=== PATIENT | male | born 1955 | race Caucasian/White ===

== ENCOUNTER 2017-06-19 17:18 | Emergency (ER) | payer OTHER ==
[2017-06-19 17:24] VITALS: BP 127/85
[2017-06-19] MEDS ORDERED: Tetracaine 0.5% OPTH.SOL 4 ML* 1 DROP BTL BOTH EYES ONE (17:27)
[2017-06-19] MEDS ORDERED: Fluorescein Sodium TOPICAL* 1 MG TEST OPHTHALMIC ONE (17:28)
--- NOTE | 2017-06-19 17:57 | UC ---
Daniela Horton Thomas, scribed for Katherin Nolan MD on 06/19/17 at 1731 . Eye Complaint HPI - HPI Summary HPI Summary: The pt is a 62 y/o M presenting to [facility] c/o R eye irritation for the last three hours. He is a bernabe and he thinks that some dust may have become lodged in his eye approx 2pm today. He complains of a foreign body sensation in his right eye upper lid. He has rinsed his eye in cold water for five minutes. He reports clear drainage. + photophobia. The irritation is worsened with sunlight. He has a Hx of a torn retina in his right eye previous. He had cataract surgery as well, and he has an implanted lens in his right eye. 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 This blurred vision is unchanged from baseline. He rates his pain 6/10. He normally wears glasses. Pt denies ear pain, sinus pain. The patients PCP is Dr. Pulliam. Patients medication reviewed this visit. - History of Current Complaint Chief Complaint: UCEye Stated Complaint: EYE COMPLAINT Hx Obtained From: Patient Onset/Duration: Sudden Onset, Lasting Hours - onset two hours ago, Still Present Timing: Constant Severity Initially: Mild Severity Currently: Moderate Pain Intensity: 6 Pain Scale Used: 0-10 Numeric Location of Injury: Eye Lid (upper) Character: Foreign Body Sensation Aggravating Factor(s): Other - Sunlight Alleviating Factor(s): Nothing Associated Signs And Symptoms: Positive: Drainage (Clear), Vision Impairment Right - chronic blurred vision that is baseline Related History: Other - Hx of torn retina in his R eye - Allergies/Home Medications Allergies/Adverse Reactions: Allergies Allergy/AdvReac Type Severity Reaction Status Date / Time No Known Allergies Allergy Verified 06/19/17 17:24 Home Medications: Home Medications HYDROcodone/ACETAMIN 5-325 MG* [[place] 5-325 TAB*] 1 tab PO PRN 06/19/17 [History ] Multiple Vitamins W/ Minerals [Multivitamin Adults] 1 tab PO DAILY 06/19/17 [ History Confirmed 06/19/17] PMH/Surg Hx/FS Hx/Imm Hx Previously Healthy: No - Torn retina in right eye; leg fracture; cataracts - Surgical History Surgical History: Yes Surgery Procedure, Year, and Place: RIGHT EYE (TORN RETINA REPAIR), LEG SURGERY , SHOULDER SURGERY, TESTICULAR SURGERY, APPENDECTOMY - Family History Known Family History: Positive: Diabetes, Other - Cancer - Social History Alcohol Use: Occasionally Substance Use Type: Marijuana Smoking Status (MU): Current Every Day Smoker Type: Cigarettes Amount Used/How Often: 3 - PPD Review of Systems Constitutional: Other - NEG: fever Eyes: Drainage - clear, Other - Eye irritation x2 hours All Other Systems Reviewed And Are Negative: Yes Physical Exam Triage Information Reviewed: Yes Appearance: Well-Appearing, No Pain Distress, Well-Nourished Vital Signs: Initial Vital Signs Temp 98.7 F 06/19/17 17:19 Pulse 51 06/19/17 17:19 Resp 16 06/19/17 17:19 BP 127/85 06/19/17 17:19 Pulse Ox 95 06/19/17 17:19 Vital Signs Reviewed: Yes Eyes: Positive: Other: - ZOHRA, EOM intact and full + diffuse injection with clear discharge + fluorescene uptake at 11 o'clock iris no foreign body noted lids everted without foreign body ENT: Positive: Normal ENT inspection, Hearing grossly normal, Pharynx normal, TMs normal Dental Exam: Normal Neck exam: Normal Neck: Positive: Supple, Nontender, No Lymphadenopathy Respiratory: Positive: No respiratory distress Psychological Exam: Normal Eye Complaint Course/Dx - Course Course Of Treatment: The pt is a 62 y/o M presenting to [facility] c/o R eye irritation for the last three hours. He is a bernabe and he thinks that some dust may have become lodged in his eye. He complains of a foreign body sensation in his right eye upper lid. He has rinsed his eye in cold water for five minutes. He reports clear drainage. The irritation is worsened with sunlight. He has a Hx of a torn retina in his right eye. He had cataracts surgery as well, and he has an implanted lens in his right eye. Pt with corneal abraison on exam. no foreign body noted. strong recommendation for optho f.u - pt will go this doctor in [place] or specialist in [place]. polytrim. sunglasses. return precautions. Pt in agreement with plan - Differential Dx/Diagnosis Provider Diagnoses: corneal abrasion Discharge - Discharge Plan Condition: Stable Disposition: HOME Prescriptions: Polymyx/Trimethoprim OPTH* [Polytrim OPHTH*] 1 drop RIGHT EYE Q6HR #1 btl Patient Education Materials: Corneal Abrasion (ED) Referrals: Cornelio Pulliam MD [Primary Care Provider] - Additional Instructions: - Use antibiotic eye drops as prescribed - every 6 hours x 5 days - Okay to alternate ibuprofen (Advil, Motrin) and Tylenol every 3 hours for pain. Take with food. Do NOT take for more than 4-5 days - avoiding light - sunglasses, sun patches - will be helpful for sensitivity - contact your eye doctor to schedule a recheck in the next 1-2 days - this is important. -if you develop increased pain, drainage, or any other concerns - contact your doctor or return with any questions or concerns The documentation as recorded by the Daniela davila Thomas accurately reflects the service I personally performed and the decisions made by me, Katherin Nolan MD.
== END 2017-06-19 18:05 | disposition home or self-care (01) ==
LOC: UCEAST 17:18
DX: S05.01XA Injury of conjunctiva and corneal abrasion without foreign body, right eye, initial encounter (principal); X58.XXXA Exposure to other specified factors, initial encounter; Y92.9 Unspecified place or not applicable; Z86.69 Personal history of other diseases of the nervous system and sense organs
CPT/HCPCS: 99212; A9270-GY; G0463

== ENCOUNTER 2019-01-28 12:13 | Emergency (ER) | payer OTHER ==
[2019-01-28 12:31] VITALS: BP 138/83
[2019-01-28] MEDS ORDERED: Aspirin 81 mg CHEW TAB* 81 MG TAB.CHEW PO ONE (12:39)
--- NOTE | 2019-01-28 12:45 | UC ---
Cardiac HPI - HPI Summary HPI Summary: ONSET OF MIDSTERNAL/LEFT ANTERIOR CHEST PAIN 2 DAYS AGO WHILE WORKING. PATIENT WORKS IN CONSTRUCTION. HAS BEEN CONSTANT SINCE ONSET BUT WORSE TODAY. SYMPTOMS AGGRAVATED BY EXERTION. HE REPORTS SOME ASSOCIATED SHORTNESS OF BREATH AND RADIATION OF THE PAIN UP HIS NECK AND DOWN HIS ARM. PATIENT IS A SMOKER AND HAS A POSITIVE FAMILY HISTORY OF HEART DISEASE. - History of Current Complaint Chief Complaint: UCChestPain Stated Complaint: CHEST PAIN Time Seen by Provider: 01/28/19 12:26 Hx Obtained From: Patient Onset/Duration: Sudden Onset, Lasting Days, Still Present Timing: Constant Initial Severity: Moderate Current Severity: Moderate Pain Intensity: 3 Chest Pain Location: Mid Sternal, Left Anterior Character: Dull/Aching Aggravating Factor(s): Exertion Alleviating Factor(s): Nothing Associated Signs & Symptoms: Positive: Chest Pain, SOB - Allergy/Home Medications Allergies/Adverse Reactions: Allergies Allergy/AdvReac Type Severity Reaction Status Date / Time No Known Allergies Allergy Verified 01/28/19 12:25 PMH/Surg Hx/FS Hx/Imm Hx Previously Healthy: Yes - Surgical History Surgical History: Yes Surgery Procedure, Year, and Place: RIGHT EYE (TORN RETINA REPAIR), LEG SURGERY , RT SHOULDER SURGERY, TESTICULAR SURGERY, APPENDECTOMY.knee-l - Family History Known Family History: Positive: Cardiac Disease, Hypertension, Diabetes, Other - Cancer - Social History Alcohol Use: Occasionally Substance Use Type: Marijuana Substance Use Comment - Amount & Last Used: occ. Smoking Status (MU): Current Every Day Smoker Type: Cigarettes Amount Used/How Often: 3/4 - 1 PPD Review of Systems All Other Systems Reviewed And Are Negative: Yes Constitutional: Positive: Negative Respiratory: Positive: Shortness Of Breath Cardiovascular: Positive: Chest Pain Gastrointestinal: Positive: Negative Physical Exam Triage Information Reviewed: Yes Appearance: Well-Appearing, No Pain Distress, Well-Nourished Vital Signs: Initial Vital Signs Temp 98.7 F 01/28/19 12:27 Pulse 73 01/28/19 12:27 Resp 16 01/28/19 12:27 BP 138/83 01/28/19 12:27 Pulse Ox 95 01/28/19 12:27 Vital Signs Reviewed: Yes Eyes: Positive: Conjunctiva Clear ENT: Positive: Hearing grossly normal Neck: Positive: Supple Respiratory Exam: Normal Cardiovascular Exam: Normal Abdomen Description: Positive: Nontender, Soft Musculoskeletal: Positive: No Edema Neurological: Positive: Alert Psychological: Positive: Age Appropriate Behavior Skin: Negative: Rashes Diagnostics - EKG Cardiac Rate: NL - 69BPM Cardiac Rhythm: Sinus: Normal - LEFT AXIS DEVIATION Ectopy: None ST Segment: Normal - Assessment/Plan Course Of Treatment: PT OFFERED TRANSPORT TO THE ED BY AMBULANCE BUT DECLINES. ADVISED THAT BY NOT TRAVELING IN A MONITORED SETTING HE COULD BE RISKING WORSENING OF HIS CONDITION THAT COULD POSE A THREAT TO HIS LIFE, HEALTH AND MEDICAL SAFETY. HE VERBALIZES UNDERSTANDING AND CONTINUES TO DECLINE AMBULANCE TRANSFER. - Clinical Impression Provider Diagnosis: Chest pain Discharge - Sign-Out/Discharge Documenting (check all that apply): Patient Departure All imaging exams completed and their final reports reviewed: No Studies - Discharge Plan Condition: Stable Disposition: TRANS HIGHER LVL OF CARE FAC Patient Education Materials: Chest Pain (ED) Referrals: Cornelio Pulliam MD [Primary Care Provider] - If Needed Additional Instructions: GO DIRECTLY TO [facility] ED FROM HERE FOR FURTHER EVALUATION. YOU RECEIVED 81MG ASA X 4 HERE IN THE . YOU HAVE DECLINED TRANSFER TO THE ED BY AMBULANCE. BE ADVISED THAT BY NOT TRAVELING IN A MONITORED SETTING YOU COULD BE RISKING WORSENING OF YOUR CONDITION THAT COULD POSE A THREAT TO YOUR LIFE, HEALTH AND MEDICAL SAFETY. - Billing Disposition and Condition Condition: STABLE Disposition: Trans Higher Lvl of Care Fac
== END 2019-01-28 12:45 | disposition short-term general hospital (02) ==
LOC: UCEAST 12:13
DX: R07.89 Other chest pain (principal); R06.02 Shortness of breath; M54.2 Cervicalgia; M79.603 Pain in arm, unspecified; Z82.49 Family history of ischemic heart disease and other diseases of the circulatory system; Z83.3 Family history of diabetes mellitus; F17.210 Nicotine dependence, cigarettes, uncomplicated
CPT/HCPCS: 93005; 99212; A9270-GY; G0463

== ENCOUNTER 2019-01-28 13:05 | Emergency (ER) | payer OTHER ==
--- NOTE | 2019-01-28 14:08 | ED ---
HPI Chest Pain - HPI Summary HPI Summary: Pt is a 63 y/o M presenting to the ED with a chief complaint of chest pain onset about 3-4 days ago. The pain is on his L anterior chest but radiates to his L arm, neck, and back. It is described as an intermittent dull pain, and nothing really makes it worse. He reports associated SOB upon walking upstairs, dry mouth, mild cough, and some anxiety, mostly about his elevated BP. He denies nausea, fever, chills, diaphoresis, vomiting, abd pain, edema, as well as hx of ND, or recent travel or procedures. - History of Current Complaint Chief Complaint: EDChestPainROMI Time Seen by Provider: 01/28/19 13:42 Hx Obtained From: Patient Onset/Duration: Started Days Ago, Still Present Timing: Intermittent, Lasting Days Initial Severity: Moderate Current Severity: Mild Pain Intensity: 3 Pain Scale Used: 0-10 Numeric Chest Pain Location: Mid Sternal Chest Pain Radiates: Yes Chest Pain Radiates To:: Back, Arm, Neck Character: Dull/Aching Aggravating Factor(s): Nothing Alleviating Factor(s): Nothing Associated Signs and Symptoms: Positive: Anxiety, Shortness of Breath, Cough. Negative: Fever, Chills, Diaphoresis, Nausea, Abdominal Pain, Vomiting, Edema - Allergy/Home Medications Allergies/Adverse Reactions: Allergies Allergy/AdvReac Type Severity Reaction Status Date / Time No Known Allergies Allergy Verified 01/28/19 13:16 Home Medications: Home Medications Famotidine 1 tab PO DAILY 01/28/19 [History Confirmed 01/28/19] PMH/Surg Hx/FS Hx/Imm Hx Previously Healthy: Yes Endocrine/Hematology History: Denies: Hx Diabetes Cardiovascular History: Denies: Hx Hypercholesterolemia - Surgical History Surgery Procedure, Year, and Place: RIGHT EYE (TORN RETINA REPAIR), LEG SURGERY , RT SHOULDER SURGERY, TESTICULAR SURGERY, APPENDECTOMY.knee-l Infectious Disease History: No Infectious Disease History: Denies: Traveled Outside the [place] in Last 30 Days - Family History Known Family History: Positive: Cardiac Disease, Hypertension, Diabetes, Other - Cancer - Social History Alcohol Use: Occasionally Hx Substance Use: Yes Substance Use Type: Reports: Marijuana Substance Use Comment - Amount & Last Used: occ. Hx Tobacco Use: Yes Smoking Status (MU): Current Every Day Smoker Type: Cigarettes Amount Used/How Often: 3/4 - 1 PPD Review of Systems Positive: Other - dry mouth. Negative: Fever, Chills Positive: Chest Pain Positive: Shortness Of Breath, Cough Negative: Abdominal Pain, Vomiting, Nausea Negative: Edema Positive: Anxious All Other Systems Reviewed And Are Negative: Yes Physical Exam - Summary Physical Exam Summary: Constitutional: Well-developed, Well-nourished, Alert. (-) Distressed Skin: Warm, Dry HENT: Normocephalic; Atraumatic Eyes: Conjunctiva normal Neck: Musculoskeletal ROM normal neck. (-) JVD, (-) Stridor, (-) Tracheal deviation Cardio: Rhythm regular, rate normal, Heart sounds normal; Intact distal pulses; The pedal pulses are 2+ and symmetric. Radial pulses are 2+ and symmetric. (-) Murmur Pulmonary/Chest wall: Effort normal. (-) Respiratory distress, Rare wheeze, (-) Rales Abd: Soft, (-) tenderness, (-) Distension, (-) Guarding, (-) Rebound Musculoskeletal: (-) Edema Lymph: (-) Cervical adenopathy Neuro: Alert, Oriented x3 Psych: Mood and affect Normal Triage Information Reviewed: Yes Vital Signs On Initial Exam: Initial Vitals Temp Pulse Resp BP Pulse Ox 97.9 F 67 18 146/82 96 01/28/19 13:14 01/28/19 13:14 01/28/19 13:14 01/28/19 13:14 01/28/19 13:14 Vital Signs Reviewed: Yes Diagnostics - Vital Signs Vital Signs Temp Pulse Resp BP Pulse Ox 01/28/19 13:14 97.9 F 67 18 146/82 96 - Laboratory Result Diagrams: 01/28/19 14:06 01/28/19 14:06 Lab Statement: Any lab studies that have been ordered have been reviewed, and results considered in the medical decision making process. - Radiology CXR Radiology Interpretation Completed By: Radiologist Summary of Radiographic Findings: No active cardiopulmonary disease. ED physician has reviewed this report. - CT Chest/Thorax CTA CT Interpretation Completed By: Radiologist Summary of CT Findings: 1. No pulmonary emboli. No additional findings to correlate with patient's symptomatology. 2. Mild emphysema. ED physician has reviewed this report. - EKG 1318 Cardiac Rate: NL - 64bpm EKG Rhythm: Sinus Rhythm ST Segment: Normal Ectopy: None Summary of EKG Findings: EKG at 1318 shows NSR at 64bpm with nml QRS, nml ST segment, nml T-waves, and some L-axis deviation. Re-Evaluation - Re-Evaluation 1st re-eval Re-Evaluation Time: 20:01 Change: Unchanged Comment: Results of CTA discussed w/ patient. Chest Pain Course/Dx - Course Course Of Treatment: Pt is a 63 y/o M presenting to the ED with a chief complaint of intermittent chest pain described as a dull pain. He reports associated SOB upon walking upstairs, dry mouth, mild cough, and some anxiety, mostly about his elevated BP. He denies nausea, fever, chills, diaphoresis, vomiting, abd pain, edema, as well as hx of ND, or recent travel or procedures. CXR shows no active cardiopulmonary disease. Pt's lab results show a BUN/ Creatinine ratio of 26.1, lactic acid of 0.4, and initial troponin of 0.00. His second troponin is 0.00. EKG at 1318 shows NSR at 64bpm with nml QRS, nml ST segment, nml T-waves, and some L-axis deviation. Chest/Thorax CTA shows: 1. No pulmonary emboli. No additional findings to correlate with patient's symptomatology. 2. Mild emphysema. At 2000, I discussed the results with the patient. He will be sent home with dx including chest pain and bronchospasm. - Diagnoses Provider Diagnoses: Bronchospasm, Chest pain Discharge - Sign-Out/Discharge Documenting (check all that apply): Patient Departure Patient Received Moderate/Deep Sedation with Procedure: No - Discharge Plan Condition: Stable Disposition: HOME Prescriptions: Albuterol HFA INHALER* [Ventolin HFA Inhaler*] 1 puff INH Q4H PRN #1 mdi PRN Reason: Sob/Wheezing Patient Education Materials: Chest Pain (ED), Bronchospasm (ED) Print Language: UZBEK Referrals: Cornelio Pulliam MD [Primary Care Provider] - - Billing Disposition and Condition Condition: STABLE Disposition: Home - Attestation Statements Document Initiated by Scribe: Yes Documenting Scribe: Kady Cervantes Provider For Whom Scribe is Documenting (Include Credential): Clover Lim MD. Scribe Attestation: I, Kady Cervantes, scribed for Clover Maldonado MD. on 01/28/19 at 2240. Scribe Documentation Reviewed: Yes Provider Attestation: The documentation as recorded by the scribe, Kady Cervantes accurately reflects the service I personally performed and the decisions made by me, Clover Maldonado MD. Status of Scribe Document: Viewed
[2019-01-28 14:15] LABS: ABS Basophils 0 10^3/ul (0-0.2); ABS Eosinophils 0.3 10^3/ul (0-0.6); ABS Lymphocytes 2.7 10^3/ul (1.0-4.8); ABS Monocytes 0.7 10^3/ul (0-0.8); ABS Neutrophils 4.4 10^3/ul (1.5-7.7); ABS Nucleated RBC 0 10^3/ul; Eosinophil % 3.2 %; Hematocrit 47 % (42-52); Hemoglobin 15.8 g/dL (14.0-18.0); Lymphocyte % 33.6 %; Mean Corpuscular HGB Conc 34 g/dL (31-36); Mean Corpuscular Hemoglobin 30 pg (27-31); Mean Corpuscular Volume 89 fL (80-94); Mean Platelet Volume 7.8 fL (7.4-10.4); Nucleated Red Blood Cells % 0; Platelet Count 150 10^3/uL (150-450); Red Blood Count 5.21 10^6 /uL (4.18-5.48); Red Cell Distribution Width 14 % (10.5-15); White Blood Count 8.2 10^3/uL (3.5-10.8)
[2019-01-28 14:35] LABS: Albumin 4.5 g/dL (3.2-5.2); Albumin/Globulin Ratio 1.7 (1-3); BUN/Creatinine Ratio 26.1 (8-20); Calcium 10.1 mg/dL (8.6-10.3); EGFR African American 105.8 (>60); EGFR Non-African American 87.5 (>60); Globulin 2.7 g/dL (2-4); Magnesium 2.1 mg/dL (1.9-2.7); Potassium 4.4 mmol/L (3.5-5.0); Total Bilirubin 0.5 mg/dL (0.2-1.0); Total Protein 7.2 g/dL (6.4-8.9)
[2019-01-28] MEDS ORDERED: Iohexol 350* (CONTRAST) 500 ML MDV IV ONE (18:22)
[2019-01-28 20:11] VITALS: BP 122/89
== END 2019-01-28 20:11 | disposition home or self-care (01) ==
LOC: ED 13:05
DX: R07.9 Chest pain, unspecified (principal); J98.01 Acute bronchospasm; J43.9 Emphysema, unspecified
CPT/HCPCS: 36415; 71045; 71275; 80053; 83605; 83735; 83880; 84484; 85025; 93005; 99283; Q9967